=== PATIENT | female | born 2000 | race Caucasian/White ===

== ENCOUNTER 2021-07-01 12:40 | Emergency (ER) | payer OTHER ==
[~2021-07-01] VITALS: Ht 175.3 cm; Wt 74.5 kg
[2021-07-01 13:13] VITALS: BP 137/74
[2021-07-01] MEDS ORDERED: PRED50TA PO (13:16)
[2021-07-01] MEDS ORDERED: AMOX500T PO (13:16)
--- NOTE | 2021-07-01 13:16 | PHYS DOC ---
General Adult EDM: Chief Complaint: Sore throat, difficulty swallowing HPI: HPI: Patient is a 20-year-old female who arrives ambulatory to the emergency department complaining of a sore throat and difficulty swallowing. Patient reports her symptoms began yesterday. Patient states in addition to this she has had chills and upon waking this morning states her symptoms were worse and she had multiple episodes of vomiting. Despite this she denies any abdominal pain. She further denies any cough, shortness of air or known fevers. Additionally she denies any headache or neurological changes. Furthermore she states she is vaccinated against coronavirus and has not had any known sick contacts otherwise. She is awake, alert and nontoxic-appearing. Review of Systems: Review of Systems: Constitutional: Reports chills. Eyes: Denies change in visual acuity HENT: Reports sore throat with difficulty swallowing. Respiratory: Denies cough or shortness of breath Cardiovascular: Denies chest pain or edema GI: Reports vomiting. Denies abdominal pain, bloody stools or diarrhea : Denies dysuria Musculoskeletal: Denies back pain or joint pain Integument: Denies rash Neurologic: Denies headache, focal weakness or sensory changes Endocrine: Denies polyuria or polydipsia Lymphatic: Denies swollen glands Psychiatric: Denies depression or anxiety Family History: Family History: Noncontributory Physical Exam: PE: Constitutional: Patient does speak with muffled tone. Well developed, well nourished, no acute distress, non-toxic appearance. [] HENT: Patient has tonsillar exudates bilaterally with swollen erythematous tonsils. This is consistent with streptococcal pharyngitis. Normocephalic, atraumatic, bilateral external ears normal, oropharynx moist, nose normal. [] Eyes: PERRLA, EOMI, conjunctiva normal, no discharge. [] Neck: Normal range of motion, no tenderness, supple, no stridor. [] Cardiovascular:Heart rate regular rhythm, no murmur [] Lungs & Thorax: Bilateral breath sounds clear to auscultation [] Abdomen: Bowel sounds normal, soft, no tenderness, no masses, no pulsatile masses. [] Skin: Warm, dry, no erythema, no rash. [] Back: No tenderness, no CVA tenderness. [] Extremities: No tenderness, no cyanosis, no clubbing, ROM intact, no edema. [] Neurologic: Alert and oriented X 3, normal motor function, normal sensory function, no focal deficits noted. [] Psychologic: Affect normal, judgement normal, mood normal. [] EKG: EKG: [] Radiology/Procedures: Radiology/Procedures: [] Heart Score: C/O Chest Pain: No Risk Factors: Risk Factors: DM, Current or recent (<one month) smoker, HTN, HLP, family history of CAD, obesity. Risk Scores: Score 0 - 3: 2.5% MACE over next 6 weeks - Discharge Home Score 4 - 6: 20.3% MACE over next 6 weeks - Admit for Clinical Observation Score 7 - 10: 72.7% MACE over next 6 weeks - Early Invasive Strategies Course & Med Decision Making: Course & Med Decision Making The patient was taken directly to room 5 in the emergency department whereby the history physical examination were obtained. Upon physical examination the patient does have tonsillar exudates bilaterally as well as anterior lympha denopathy. With these findings the patient does meet the [facility] criteria for empirical treatment of streptococcal pharyngitis. The patient does not have a cough. Additionally she does have tonsillar exudates with anterior lymphadenopathy and I question whether or not the patient may have had a fever at one time as she does report experiencing chills yesterday evening. The patie nt be placed on steroids as well as antibiotics and asked to follow-up with her primary care physician in 10 days. Should she experience any symptoms such as fatigue, chest pain or shortness of air I advised that she return to the emergency department. The patient understands and has agreed to do so. She is nontoxic-appearing and stable for discharge. [] Kathy Disclaimer: Kathy Disclaimer: This electronic medical record was generated, in whole or in part, using a voice recognition dictation system. Departure Departure: Impression: Primary Impression: Pharyngitis Disposition: HOME / SELF CARE / HOMELESS Condition: STABLE Referrals: PCP,UNKNOWN (PCP) Patient Instructions: Strep Throat Additional Instructions: Follow-up with a primary care physician in 10 to 14 days Scripts Prednisone (PREDNISONE) 50 Mg Tablet 50 TAB PO DAILY for inflammation for 5 Days, #5 TAB You received this medication in the emergency room today. You will starting your next dose tomorrow. Prov: SHAVONNE CALIX DO 07/01/21 Amoxicillin (AMOXICILLIN) 500 Mg Tablet 1 TAB PO TID for strep infection for 10 Days, #30 TAB Prov: SHAVONNE CALIX DO 07/01/21 SAHVONNE CALIX DO July 01, 2021 13:16
[2021-07-01] MEDS ORDERED: predniSONE 20 MG TABLET PO ONE (13:30)
[2021-07-01] MEDS ORDERED: predniSONE 10 MG TABLET. PO ONE (13:30)
[2021-07-01] MEDS ORDERED: ACETAMINOPHEN 500 MG TABLET PO ONE (13:30)
== END 2021-07-01 13:37 | disposition home or self-care (01) ==
LOC: ER 12:40
DX: J02.9 Acute pharyngitis, unspecified (principal); R13.10 Dysphagia, unspecified; R11.10 Vomiting, unspecified
CPT/HCPCS: 99284; J7512